=== PATIENT | female | born 1965 | race Caucasian/White ===

== ENCOUNTER 2017-08-19 04:24 | Emergency (ER) | payer BC ==
[~2017-08-19] VITALS: Ht 160 cm; Wt 65.3 kg
[~2017-08-19 04:24] MED LIST: TOPI100T11 PO
[2017-08-19 04:26] VITALS: BP_SYST 123
[2017-08-19] MEDS ORDERED: ASPIRIN 81 MG TAB.CHEW PO ONE (04:45)
[2017-08-19] MEDS ORDERED: ASPIRIN 325 MG TABLET PO ONE (05:00)
[2017-08-19] MEDS ORDERED: NITROGLYCERIN 0.4 MG TAB.SUBL SL ONE (05:00)
[2017-08-19 05:03] LABS: BILIRUBIN,URINE NEGATIVE (NEGATIVE); BLOOD, URINE TRACE (NEGATIVE); CLARITY/URINE CLEAR (CLEAR); COLOR,URINE YELLOW (YELLOW); GLUCOSE,URINE NEGATIVE (NEGATIVE); KETONES,URINE NEGATIVE (NEGATIVE); LEUKOCYTE ESTERASE ,URINE TRACE (NEGATIVE); NITRITE, URINE NEGATIVE (NEGATIVE); PH,URINE 6.5 (5.0-8.0); PROTEIN URINE NEGATIVE (NEGATIVE); UROBILINOGEN,URINE 0.2 (0.2-1.0)
[2017-08-19 05:08] LABS: BACTERIA,URINE FEW /HPF (None Seen); RBC,URINE 0-3 /HPF (0-3)
[2017-08-19 05:13] LABS: CALCIUM 9.3 mg/dL (8.4-11.0); CREATININE 0.73 mg/dL (0.55-1.30); POTASSIUM 3.6 mmol/L (3.5-5.1)
[2017-08-19 05:15] LABS: PROTHROMBIN TIME 10.1 SECS (9.5-12.5)
[2017-08-19 05:18] LABS: TOTAL BILIRUBIN 0.5 mg/dL (0.0-1.0)
[2017-08-19 05:19] LABS: RED BLOOD CELL COUNT(AUTO) 4.61 MIL/uL (4.2-6.2); WHITE BLOOD COUNT (AUTO) 9.6 K/uL (4.8-10.8)
[2017-08-19 05:20] LABS: HEMATOCRIT 42.4 % (36-48); HEMOGLOBIN 13.9 g/dL (12.0-16.0); MEAN CORPUSCULAR HEMOGLOBIN 30 pg (27-31); MEAN CORPUSCULAR HGB CONC 33 % (32-36); MEAN CORPUSCULAR VOLUME 92 fL (79.0-98.0); RED CELL DISTRIBUTION WIDTH 12.1 % (9.0-15.0)
[2017-08-19 05:21] LABS: NEUTROPHILS % (AUTO) 54.8 % (40.0-70.0); PLATELET COUNT (AUTO) 397 K/uL (130-430)
[2017-08-19 05:22] LABS: BASOPHILS % (AUTO) 0.8 % (0.0-2.0); EOSINOPHILS % (AUTO) 3.3 % (0.0-4.0); MONOCYTES % (AUTO) 9.1 % (1.7-9.3); NEUTROPHILS # (AUTO) 5.2 K/uL (1.8-7.7)
[2017-08-19 05:23] LABS: BASOPHILS # (AUTO) 3.3 K/uL (0.0-0.2); LYMPHOCYTES # (AUTO) 3.1 K/uL (1.0-5.5); MONOCYTES # (AUTO) 9.1 K/uL (0.0-1.0)
[2017-08-19 05:53] LABS: EOSINOPHILS # (AUTO) 0.3 K/uL (0.0-0.4)
[2017-08-19] MEDS ORDERED: MORPHINE 2 MG/ML INJ. SYRINGE IVP ONE (06:15)
[2017-08-19 06:16] LABS: BARBITURATE, URINE NEGATIVE (NEG <=200); BENZODIAZEPINE, URINE NEGATIVE (NEG <=150); CANNABINOID, URINE NEGATIVE (NEG <=50); COCAINE, URINE NEGATIVE (NEG <=150); METHAMPHETAMINES SCREEN,URINE NEGATIVE (NEG <=500); OPIATE, URINE NEGATIVE (NEG <=100); PHENCYCLIDINE SCREEN,URINE NEGATIVE (NEG <=25); UR TRICYCLIC ANTIDEPRESSANTS NEGATIVE (NEG <=300); URINE AMPHETAMINE NEGATIVE (NEG <=500); URINE METHADONE NEGATIVE (NEG <=200); URINE OXYCODONE SCREEN NEGATIVE (NEG <=100); URINE PROPOXYPHENE SCREEN NEGATIVE (NEG <=300)
[2017-08-19] MEDS ORDERED: MORPHINE 4 MG/ML INJ. SYRINGE ONE (06:22)
[2017-08-19] MEDS ORDERED: MAG HYDROX/AL HYDROX/SIMETH 30 ML, LIDOCAINE VISCOUS 2% 15ML (PO) 10 ML, BELLADONNA ALK... PO ONE ×3 (06:45)
[2017-08-19 07:15] VITALS: BP_SYST 126
== END 2017-08-19 07:15 | disposition home or self-care (01) ==
LOC: SED 04:24
DX: R07.89 Other chest pain (principal); R06.02 Shortness of breath; R11.0 Nausea
CPT/HCPCS: 36415; 71045; 80053; 80307; 81000; 81025; 82550; 83880; 84484; 85025; 85379; 85610; 85730; 93005; 96374; 99285; J2001; J2270

== ENCOUNTER 2022-04-11 07:11 | Emergency (ER) | payer BC ==
[~2022-04-11] VITALS: Ht 157.5 cm; Wt 63.5 kg
[2022-04-11 07:29] VITALS: BP_SYST 118
--- NOTE | 2022-04-11 07:33 | NUR ---
Patient to ER bed 8 to gown for evaluation. Side rails up. Report given to Max PLATT.
--- NOTE | 2022-04-11 07:40 | NUR ---
PT BIB AWAKE AND ALERT, AOX4. NO SOB OR DISTRESS. PT C/O PAIN TO L SHOULDER. PT DENIES TRAUMA AND SAID SHE JUST WOKE UP WITH LEFT SHOULD PAIN X 6 DAYS AGO. PT HAS HX OF LOWER BACK SX 1 MONTH AGO. PT STATES PAIN 8.
--- NOTE | 2022-04-11 07:41 | NUR ---
MD DR HERNANDEZ AT BEDSIDE
[2022-04-11] MEDS ORDERED: fentaNYL CITRATE/PF 100 MCG/2 ML AMP IM ONE (07:45)
[2022-04-11] MEDS ORDERED: TRAM50TA2 PO (08:17)
[2022-04-11 08:48] VITALS: BP_SYST 118
--- NOTE | 2022-04-11 08:50 | NUR ---
Patient given written and verbal discharge instructions and verbalizes understanding. ER MD DR HERNANDEZ discussed with patient the results and treatment provided. Patient in stable condition. ID arm band removed. Rx of TRAMODOL given. Patient educated on pain management and to follow up with PMD. Pain Scale 6/10. Opportunity for questions provided and answered. Medication side effect fact sheet provided.
== END 2022-04-11 08:48 | disposition home or self-care (01) ==
LOC: SED 07:11
DX: M77.8 Other enthesopathies, not elsewhere classified (principal); Z88.5 Allergy status to narcotic agent; Z88.6 Allergy status to analgesic agent; Z79.899 Other long term (current) drug therapy
CPT/HCPCS: 99283; 73030; 96372; J3010